=== PATIENT | male | born 1975 | race Two or more races ===

== ENCOUNTER 2016-07-28 10:52 | Day surgery (SDC) | payer OTHER ==
[2016-07-27 14:24] VITALS: BMI 34.9
[~2016-07-28] VITALS: Ht 193 cm; Wt 126.7 kg
[2016-07-28] VITALS (15 sets, daily range): BP systolic 82–148; BP diastolic 49–94; PULSE 62–81; RESP 9–23; Ht 193 cm; Wt 126.7 kg
[2016-07-28] MEDS ORDERED: CEFAZOLIN 2 GM/50 ML (PMX) 50 ML IVPB ONE (11:30)
[2016-07-28] MEDS ORDERED: SOD CHLORIDE 0.9% 1,000 ML IV SCH (11:30)
[2016-07-28] MEDS ORDERED: BUPIVACAINE 0.25% (MPF) 30 ML INJ ONE (11:37)
[2016-07-28] MEDS ORDERED: PROPOFOL 40 ML ONE (12:07)
[2016-07-28] MEDS ORDERED: MIDAZOLAM 1 MG/ML 2 ML INJ ONE (12:07)
[2016-07-28] MEDS ORDERED: ROCURONIUM 50 MG INJ ONE (12:07)
[2016-07-28] MEDS ORDERED: SUCCINYLCHOLINE CHLORIDE 100 MG/5 ML SYG IV ONE (12:07)
[2016-07-28] MEDS ORDERED: CEFAZOLIN 1 GM INJ ONE ×2 (12:07→12:41)
[2016-07-28] MEDS ORDERED: FENTAnyl 50 MCG/ML VIAL ONE ×2 (12:07→12:08)
[2016-07-28] MEDS ORDERED: KETOROLAC 30 MG INJ ONE (12:55)
[2016-07-28] MEDS ORDERED: ONDANSETRON 4 MG INJ ONE (12:55)
[2016-07-28] MEDS ORDERED: GLYCOPYRROLATE 0.4 MG INJ ONE (12:55)
[2016-07-28] MEDS ORDERED: DEXAMETHASONE 4 MG/ML 1 ML INJ ONE (12:55)
[2016-07-28] MEDS ORDERED: METOCLOPRAMIDE 10 MG INJ ONE (12:55)
[2016-07-28] MEDS ORDERED: NEOSTIGMINE 3 MG/3 ML SYRINGE ONE (12:55)
[2016-07-28] MEDS ORDERED: MEPERIDINE 25 MG INJ IV PRN (13:00)
[2016-07-28] MEDS ORDERED: DIPHENHYDRAMINE 50 MG INJ IV PRN (13:00)
[2016-07-28] MEDS ORDERED: HYDROmorphONE (0.2 MG/ML) 10ML SYG IV PRN ×2 (13:00)
[2016-07-28] MEDS ORDERED: EPHEDrine SULFATE 50 MG/5 ML SYG IV PRN (13:00)
[2016-07-28] MEDS ORDERED: ONDANSETRON 4 MG INJ IV PRN (13:00)
[2016-07-28] MEDS ORDERED: hydrALAzine 20 MG INJ IV PRN (13:00)
[2016-07-28] MEDS ORDERED: morphine (1 MG/ML) 10ML SYRINGE IV PRN ×2 (13:00)
[2016-07-28] MEDS ORDERED: LABETALOL HCL 20MG INJ IV PRN (13:00)
[2016-07-28] MEDS ORDERED: METOCLOPRAMIDE 10 MG INJ IV PRN (13:00)
[2016-07-28] MEDS ORDERED: HYDROCODONE/APAP (5/325) TAB PO ONE (13:30)
[2016-07-28] MEDS: HYDROmorphONE (0.2 MG/ML) 10ML SYG IV PRN ×5 (13:43→14:30)
[2016-07-28] MEDS: morphine (1 MG/ML) 10ML SYRINGE IV PRN ×5 (13:46→14:34)
--- NOTE | 2016-07-28 13:49 | OPR ---
DATE OF OPERATION: 07/28/2016 INDICATION: This is a 40-year-old male with a large pilonidal cyst. He requests surgical excision. Risks, alternatives, benefits, and personnel were discussed with the patient. The patient express ed understanding and consents to the operation. PREOPERATIVE DIAGNOSIS: Pilonidal cyst. POSTOPERATIVE DIAGNOSIS: Pilonidal cyst. PROCEDURE PERFORMED 1. Excision of pilonidal cyst with a 10 cm size incision and 10 x 4 cm in size lesion. 2. Localized adjacent tissue transfer with the use of skin flaps, approximately 40 cm2 defect. 3. Therapeutic injection [place] [address]. SURGEON: Terrence Fernandez MD SPECIMEN: Pilonidal cyst. COMPLICATIONS: None. ANESTHESIA: General. PROCEDURE: The patient was taken to the OR and prepped and draped in the usual sterile fashion. Braxton rgical timeout was performed. IV antibiotics were given. An elliptical incision is made over the p ilonidal cyst with a 10 blade. Dissection cautery was carried down to the bone. The pilonidal cyst was excised. There was good hemostasis. Due to the large tissue defect, multilayer closure with i nterrupted 2-0 Vicryl and 2-0 nylon was performed. Injection of subcutaneous local anesthesia was i njected. Dictated By: TERRENCE PONCE/JOCELYNE Conf#: [id number] DID#: [id number]
== END 2016-07-28 15:25 | disposition home or self-care (01) ==
LOC: SDS 10:52
PROVIDERS: ATTEND Surgery
DX: L05.91 Pilonidal cyst without abscess (principal)
CPT/HCPCS: 88304; J0330; J0690; J1100; J1170; J1885; J2175; J2250; J2270; J2405; J2710; J2765; J3010